=== PATIENT | female | born 1985 | race African-American/Black ===

== ENCOUNTER 2020-06-26 16:39 | Emergency (ER) | payer BC ==
[~2020-06-26] VITALS: Ht 165.1 cm; Wt 81.7 kg
[~2020-06-26 16:39] MED LIST: ALBUTEROL INH INH; APAP500 PO; AZITHROMYCIN 2250 MG PO; BISA-LAX5 MG PO; CIPROFLOXACIN500 M1 PO; COLACE 100 MG100 MG; IBUPROFEN 600600 M1; IBUPROFEN 600600 M1 PO; IBUPROFEN 800800 M1 PO; IRON325 PO; LANOLIN56 GM; MACROBID 100 M100 M1 PO; NOHOMEMEDICATIONS; NORCO 5-325 TA1 EACH; NORCO 5-325 TA1 EACH PO; PRENATAL; PRENATAL MULTI1 EAC2; SENNA PO; SIMETHICON CHEW80 M1 PO
[2020-06-26 17:01] LABS: URINE BILIRUBIN NEGATIVE (Negative); URINE BLOOD 2+ (Negative); URINE COLOR YELLOW; URINE GLUCOSE-RANDOM* NEGATIVE (Negative); URINE KETONES NEGATIVE (Negative); URINE NITRITE-REFLEX NEGATIVE (Negative); URINE PROTEIN (DIPSTICK) 1+ (Negative); URINE UROBILINOGEN 0.2 E.U./dl (0.2-1.0)
[2020-06-26 17:06] LABS: URINE LEUKOCYTES-REFLEX 2+ (Negative)
[2020-06-26 17:07] LABS: URINE CLARITY HAZY
[2020-06-26 17:09] LABS: CASTS None Seen /LPF (None Seen); CRYSTALS None Seen /LPF (None Seen); SQUAMOUS 0-3 Few /LPF (0-3); URINE WBC-REFLEX >25 Many /HPF (0-5)
[2020-06-26] MEDS ORDERED: MACROBID 100 M100 M1 PO (19:39)
[2020-06-26] MEDS ORDERED: MOBIC15 MG PO (19:39)
[2020-06-26 20:16] VITALS: BP 119/73
== END 2020-06-26 20:17 | disposition home or self-care (01) ==
LOC: ER 16:39
PROVIDERS: Emergency Medicine
DX: N12 Tubulo-interstitial nephritis, not specified as acute or chronic (principal); Z79.899 Other long term (current) drug therapy; Z88.0 Allergy status to penicillin; Z91.040 Latex allergy status